=== PATIENT | male | born 1975 | race Caucasian/White ===

== ENCOUNTER 2021-03-27 20:22 | Emergency (ER) | payer OTHER ==
[2021-03-27 20:45] VITALS: O2SAT 98
[2021-03-27] MEDS ORDERED: Sodium Chloride 0.9% 1000 ML 1,000 ML IV STA (20:54)
[2021-03-27] MEDS ORDERED: TORAdol 30 mg Injection IV ONE (20:54)
[2021-03-27 21:25] LABS: Absolute Neutrophil Ct (ANC) 6.03 (1.4-6.9); BASOPHIL % 0.3 % (0.0-0.4); Basophil (Absolute #) 0.03 (0-0.4); Eosinophil (Absolute #) 0.11 (0-0.5); Hematocrit 40.9 % (42-50); Hemoglobin 13.5 gm/dl (12.5-18.0); Lymphocytes % 31.9 % (24.0-44.0); Mean Cell Volume 87.6 fl (78-100); Mean Corpuscular Hemoglobin 28.9 pg (26-32); Mean Platelet Volume 10.2 fl (7.5-11.0); Monocytes % 10.3 % (0.0-12.0); Neutrophil % 56.5 % (36.0-66.0); Platelet Count 261 K/mm3 (150-450); Red Blood Count 4.67 M/mm3 (4.1-5.6); Red Cell Distribution Width 12.5 % (11.5-14.0); White Blood Count 10.7 K/mm3 (4.0-10.5)
[2021-03-27 21:30] LABS: Amourphous Crystal FEW /HPF (NEGATIVE); Appearance SLIGHTLY CLOUDY (CLEAR); Bilirubin NEGATIVE (NEGATIVE); Blood SMALL Ery/ul (0-5); Glucose NEGATIVE (NEGATIVE); Ketones NEGATIVE (NEGATIVE); Leukocyte Esterase SMALL (NEGATIVE); Mucus SLIGHT /HPF (NEGATIVE); Nitrite NEGATIVE (NEGATIVE); Protein,Urine Dip 30 (Negative); Urobilinogen 2 mg/dL (0-1)
[2021-03-27 21:33] LABS: Bacteria RARE /HPF (NEGATIVE)
[2021-03-27 21:45] LABS: ALBUMIN 4.2 g/dL (3.5-5.0); ALKALINE PHOSPHATASE 71 U/L (38-126); ANION GAP 11.8 MEQ/L (5-15); BLOOD UREA NITROGEN 14 mg/dL (9-20); CHLORIDE 103 mmol/L (98-107); Calcium 9.5 mg/dL (8.4-10.2); Carbon Dioxide 28 mmol/L (22-30); Creatinine 1 0.77 mg/dL (0.66-1.25); EST GLOMERULAR FILTRATION RATE > 60.0 ML/MIN; Glucose 110 mg/dL (74-106); LIPASE 154 U/L (23-300); Potassium 3.6 mmol/L (3.5-5.1); SGOT/AST 25 U/L (17-59); SGPT/ALT 41 U/L (0-50); SODIUM 139 mmol/L (137-145); Total Protein 7.1 g/dL (6.3-8.2)
[2021-03-27] MEDS ORDERED: TORAdol 30 mg Injection ONE (22:05)
[2021-03-27] MEDS ORDERED: Sodium Chloride 0.9% 1000 ML 1,000 ML ONE (22:05)
[2021-03-27] MEDS ORDERED: Cipro 500 MG PO STA (22:27)
--- NOTE | 2021-03-27 22:27 | ERPHSYRPT ---
- History of Present Illness Time Seen by Provider: 03/27/21 20:30 Source: patient Exam Limitations: no limitations Patient Subjective Stated Complaint: pt states "I have had stomach pain since Wednesday." Triage Nursing Assessment: pt ambulated into er; pt axo x4; c/o RLQ pain; pt states 8/10 pain; pt states that he has hx of constipation; pt states last bowel movement was 4-5 days ago; pt states that he was put on a soft diet by nurse in detention; pt states that was scheduled to have EGD done; pt states that he has had multiple test and scans all ending with negative results; abd is soft, round; abd is tender with palpation to RLQ; hyperactive bowel sounds in all quads; clear lung sound in all lobes posterior and anterior; vitals wnl Physician History: Patient is a 45-year-old male presents to our emergency department for evaluation of abdominal pain. Patient states he has been having abdominal pain for years. Patient states his abdominal pain became significantly worse over the past week. Pain described as an ache that is periumbilical and slightly towards right lower quadrant as well. He has a history of constipation. Last bowel movement was 4 to 5 days ago. No fever. No testicular pain or penile d ischarge. No trauma. Symptoms are mild to moderate in intensity. Patient declined pain medication. Patient appears to be comfortable. Patient voices no other complaints or concerns at this time. Timing/Duration: day(s) (7 days) Severity: moderate Modifying Factors: Improves With: nothing Associated Symptoms: denies symptoms, shortness of breath, diaphoresis, fever, loss of appetite, malaise, rash, syncope, seizure, weakness Allergies/Adverse Reactions: No Known Drug Allergies Allergy (Unverified 03/27/21 20:26) Hx Tetanus, Diphtheria Vaccination/Date Given: Yes Hx Influenza Vaccination/Date Given: No Hx Pneumococcal Vaccination/Date Given: No Travel Risk - International Travel Have you traveled outside of the country in past 3 weeks: No - Coronavirus Screening Are you exhibiting any of the following symptoms?: Yes Symptoms: Vomiting/Diarrhea Close contact with a COVID-19 positive Pt in past 14-21 Days: No - Vaccine Status Have you recieved a Covid-19 vaccination: No - Review of Systems Constitutional: No Symptoms, No Fever, No Chills Eyes: No Symptoms Ears, Nose, & Throat: No Symptoms Respiratory: No Symptoms, No Cough, No Dyspnea Cardiac: No Symptoms, No Chest Pain, No Edema, No Syncope Abdominal/Gastrointestinal: No Symptoms, No Abdominal Pain, No Nausea, No Vomiting, No Diarrhea Genitourinary Symptoms: No Symptoms, No Dysuria Musculoskeletal: No Symptoms, No Back Pain, No Neck Pain Skin: No Symptoms, No Rash Neurological: No Symptoms, No Dizziness, No Focal Weakness, No Sensory Changes Psychological: No Symptoms Endocrine: No Symptoms Hematologic/Lymphatic: No Symptoms Immunological/Allergic: No Symptoms All Other Systems: Reviewed and Negative - Past Medical History Pertinent Past Medical History: Yes GI Medical History: Hernia - Past Surgical History Past Surgical History: Yes Musculoskeletal: Orthopedic Surgery Other Surgical History: tu hands, rt ankle - Social History Smoking Status: Current some day smoker Exposure to second hand smoke: No Drug Use: marijuana Patient Lives Alone: No (detention) - Nursing Vital Signs Nursing Vital Signs: Initial Vital Signs Temperature 96.7 F 03/27/21 20:27 Pulse Rate 86 03/27/21 20:27 Respiratory Rate 18 03/27/21 20:27 Blood Pressure 135/82 03/27/21 20:27 O2 Sat by Pulse Oximetry 98 03/27/21 20:27 Pain Scale Pain Intensity 8 - Physical Exam General Appearance: no apparent distress, alert Eye Exam: PERRL/EOMI, eyes nml inspection Ears, Nose, Throat Exam: normal ENT inspection, TMs normal, pharynx normal, moist mucous membranes Neck Exam: normal inspection, non-tender, supple, full range of motion Respiratory Exam: normal breath sounds, lungs clear, No respiratory distress Cardiovascular Exam: regular rate/rhythm, normal heart sounds, normal peripheral pulses Gastrointestinal/Abdomen Exam: soft, normal bowel sounds, other (Mild periumbilical tenderness to palpation. Remainder of abdominal exam is unremarkable. Overlying soft tissue intact. No signs of trauma. No ecchymosis.), No tenderness, No mass Back Exam: normal inspection, normal range of motion, No CVA tenderness, No vertebral tenderness Extremity Exam: normal inspection, normal range of motion, pelvis stable Neurologic Exam: alert, oriented x 3, cooperative, normal mood/affect, nml cerebellar function, nml station & gait, sensation nml, No motor deficits Skin Exam: normal color, warm, dry, No rash Lymphatic Exam: No adenopathy SpO2 Interpretation: normal SpO2: 98 O2 Delivery: Room Air - Course Nursing assessment & vital signs reviewed: Yes EKG Interpreted by Me: RATE (68), Sinus Rhythm, NORMAL AXIS, NORMAL INTERVALS - CT Exams Abdomen/Pelvis CT Interpretation: Tele-radiologist Report (No comparisons, normal appendix, 20 cm hepatomegaly, 1 cm right renal cyst, moderate diffuse fecal stasis.) Ordered Tests: Active Orders 24 hr Category Date Time Status EKG-ER Only STAT Care 03/27/21 20:54 Active IV Insertion STAT Care 03/27/21 20:54 Active ABDOMEN AND PELVIS W CONTRAST [CT] Stat Exams 03/27/21 20:54 Taken CBC W DIFF Stat Lab 03/27/21 21:15 Completed CMP Stat Lab 03/27/21 21:15 Completed CULTURE,URINE Stat Lab 03/27/21 21:15 Received LIPASE Stat Lab 03/27/21 21:15 Completed TROPONIN Q3H Lab 03/27/21 21:15 Completed TROPONIN Q3H Lab 03/28/21 00:00 Ordered TROPONIN Q3H Lab 03/28/21 03:00 Ordered TROPONIN Q3H Lab 03/28/21 06:00 Ordered TROPONIN Q3H Lab 03/28/21 09:00 Ordered UA W/RFX UR CULTURE Stat Lab 03/27/21 21:15 Completed Medication Summary Discontinued Medications Generic Name Dose Route Start Last Admin Trade Name Freq PRN Reason Stop Dose Admin Ciprofloxacin 500 mg 03/27/21 22:27 03/27/21 22:31 Cipro 500 Mg PO 03/27/21 22:28 500 mg ONCE STA Administration Ciprofloxacin Confirm 03/27/21 22:30 Cipro 500 Mg Administered 03/27/21 22:31 Dose 500 mg .ROUTE .STK-MED ONE Sodium Chloride 1,000 mls @ 999 mls/hr 03/27/21 20:54 03/27/21 22:08 Sodium Chloride 0.9% 1000 Ml IV 03/27/21 21:54 999 mls/hr .Q1H1M STA Administration Sodium Chloride Confirm 03/27/21 22:05 Sodium Chloride 0.9% 1000 Ml Administered 03/27/21 22:06 Dose 1,000 mls @ ud .ROUTE .STK-MED ONE Ketorolac Tromethamine 30 mg 03/27/21 20:54 03/27/21 22:06 Toradol 30 Mg Injection IV 03/27/21 20:55 30 mg STAT ONE Administration Ketorolac Tromethamine Confirm 03/27/21 22:05 Toradol 30 Mg Injection Administered 03/27/21 22:06 Dose 30 mg .ROUTE .STK-MED ONE Lab/Rad Data: Laboratory Result Diagrams 03/27/21 21:15 03/27/21 21:15 Laboratory Results 03/27/21 03/27/21 03/27/21 Range/Units 21:15 21:15 21:15 WBC 10.7 H (4.0-10.5) K/mm3 RBC 4.67 (4.1-5.6) M/mm3 Hgb 13.5 (12.5-18.0) gm/dl Hct 40.9 L (42-50) % MCV 87.6 (78-100) fl MCH 28.9 (26-32) pg MCHC 33.0 (32-36) g/dl RDW 12.5 (11.5-14.0) % Plt Count 261 (150-450) K/mm3 MPV 10.2 (7.5-11.0) fl Gran % 56.5 (36.0-66.0) % Eos # (Auto) 0.11 (0-0.5) Absolute Lymphs (auto) 3.40 (1.0-4.6) Absolute Monos (auto) 1.10 (0.0-1.3) Lymphocytes % 31.9 (24.0-44.0) % Monocytes % 10.3 (0.0-12.0) % Eosinophils % 1.0 (0.00-5.0) % Basophils % 0.3 (0.0-0.4) % Absolute Granulocytes 6.03 (1.4-6.9) Basophils # 0.03 (0-0.4) Sodium 139 (137-145) mmol/L Potassium 3.6 (3.5-5.1) mmol/L Chloride 103 (98-107) mmol/L Carbon Dioxide 28 (22-30) mmol/L Anion Gap 11.8 (5-15) MEQ/L BUN 14 (9-20) mg/dL Creatinine 0.77 (0.66-1.25) mg/dL Estimated GFR > 60.0 ML/MIN Glucose 110 H (74-106) mg/dL Calcium 9.5 (8.4-10.2) mg/dL Total Bilirubin 0.40 (0.2-1.3) mg/dL AST 25 (17-59) U/L ALT 41 (0-50) U/L Alkaline Phosphatase 71 (38-126) U/L Troponin I < 0.012 (0.000-0.034) ng/mL Serum Total Protein 7.1 (6.3-8.2) g/dL Albumin 4.2 (3.5-5.0) g/dL Lipase 154 (23-300) U/L Urine Color (YELLOW) Urine Appearance (CLEAR) Urine pH (5-6) Ur Specific [place] (1.005-1.025) Urine Protein (Negative) Urine Ketones (NEGATIVE) Urine Blood (0-5) Monty/ul Urine Nitrite (NEGATIVE) Urine Bilirubin (NEGATIVE) Urine Urobilinogen (0-1) mg/dL Ur Leukocyte Esterase (NEGATIVE) Urine WBC (Auto) (0-5) /HPF Urine RBC (Auto) (0-2) /HPF U Epithel Cells (Auto) (FEW) /HPF Urine Bacteria (Auto) (NEGATIVE) /HPF Amorphous Crystals (NEGATIVE) /HPF Urine Mucus (Auto) (NEGATIVE) /HPF Urine Culture Reflexed (NO) Urine Glucose (NEGATIVE) mg/dL 03/27/21 Range/Units 21:15 WBC (4.0-10.5) K/mm3 RBC (4.1-5.6) M/mm3 Hgb (12.5-18.0) gm/dl Hct (42-50) % MCV (78-100) fl MCH (26-32) pg MCHC (32-36) g/dl RDW (11.5-14.0) % Plt Count (150-450) K/mm3 MPV (7.5-11.0) fl Gran % (36.0-66.0) % Eos # (Auto) (0-0.5) Absolute Lymphs (auto) (1.0-4.6) Absolute Monos (auto) (0.0-1.3) Lymphocytes % (24.0-44.0) % Monocytes % (0.0-12.0) % Eosinophils % (0.00-5.0) % Basophils % (0.0-0.4) % Absolute Granulocytes (1.4-6.9) Basophils # (0-0.4) Sodium (137-145) mmol/L Potassium (3.5-5.1) mmol/L Chloride (98-107) mmol/L Carbon Dioxide (22-30) mmol/L Anion Gap (5-15) MEQ/L BUN (9-20) mg/dL Creatinine (0.66-1.25) mg/dL Estimated GFR ML/MIN Glucose (74-106) mg/dL Calcium (8.4-10.2) mg/dL Total Bilirubin (0.2-1.3) mg/dL AST (17-59) U/L ALT (0-50) U/L Alkaline Phosphatase (38-126) U/L Troponin I (0.000-0.034) ng/mL Serum Total Protein (6.3-8.2) g/dL Albumin (3.5-5.0) g/dL Lipase (23-300) U/L Urine Color YELLOW (YELLOW) Urine Appearance SLIGHTLY CLOUDY (CLEAR) Urine pH 6.0 (5-6) Ur Specific [place] 1.020 (1.005-1.025) Urine Protein 30 (Negative) Urine Ketones NEGATIVE (NEGATIVE) Urine Blood SMALL (0-5) Monty/ul Urine Nitrite NEGATIVE (NEGATIVE) Urine Bilirubin NEGATIVE (NEGATIVE) Urine Urobilinogen 2 (0-1) mg/dL Ur Leukocyte Esterase SMALL (NEGATIVE) Urine WBC (Auto) 16-25 (0-5) /HPF Urine RBC (Auto) 3-5 (0-2) /HPF U Epithel Cells (Auto) NONE (FEW) /HPF Urine Bacteria (Auto) RARE (NEGATIVE) /HPF Amorphous Crystals FEW (NEGATIVE) /HPF Urine Mucus (Auto) SLIGHT (NEGATIVE) /HPF Urine Culture Reflexed YES (NO) Urine Glucose NEGATIVE (NEGATIVE) mg/dL - Progress Progress: improved Progress Note: Patient is a 45-year-old male detention inmate presents with complaints of chronic abdominal pain. Pain worse over the past week. CT abdomen pelvis essentially negative for acute intra-abdominal pathology. Constipation observed. UA significant for urinary tract infection. Patient received a dose of Cipro in our ED. A prescription for the same was provided to patient. No indication for further work-up at this time. Patient voices no other complaints or concerns. 03/27/21 22:50 Counseled pt/family regarding: lab results, diagnosis, need for follow-up, rad results - Departure Departure Disposition: Home Clinical Impression: UTI (urinary tract infection), Hepatomegaly, Renal cyst, right, Constipation Condition: Stable Critical Care Time: No Additional Instructions: Discharge/Care Plan FARRUKH SPENCER was seen on 03/27/21 in the Emergency Room. The patient was counseled regarding Diagnosis,Lab results, Imaging studies, need for follow up and when to return to the Emergency Room. Prescriptions given: Discharge Note I have spoken with the patient and/or caregivers. I have explained the patient's condition, diagnosis and treatment plan based on the information available to me at this time. I have answered the patient's and/or caregiver's questions and addressed any concerns. The patient and/or caregivers have as good understanding of the patient's diagnosis, condition and treatment plan as can be expected at this point. The vital signs have been stable. The patient's condition is stable and appropriate for discharge from the emergency department. The patient will pursue further outpatient evaluation with the primary care physician or other designated or consulting physician as outlined in the discharge instructions. The patient and/or caregivers are agreeable to this plan of care and follow-up instructions have been explained in detail. The patient and/or caregivers have received these instruction. The patient/and or caregivers are aware that any significant change in condition or worsening of symptoms should prompt an immediate return to this or the closest emergency department or call 911. Prescriptions: Ciprofloxacin [Cipro 500 MG] 500 mg PO BID 10 Days #20 tablet
[2021-03-27] MEDS ORDERED: Cipro 500 MG ONE (22:30)
[2021-03-27 23:08] VITALS: BP 142/78; PULSE 74
--- NOTE | 2021-03-31 09:05 | XRAY ---
Indication: Abdomen pain. Multiple contiguous axial images obtained through the abdomen and pelvis using 80 cc Isovue 370 contrast. Comparison: None Lung bases are clear. Heart is not enlarged. Noncontrasted stomach and bowel loops appear nonobstructed. Normal air-filled appendix. There is moderate diffuse scattered colonic fecal debris throughout. Liver is enlarged measuring 20 cm. Gallbladder contracted without gallstones or biliary distention. No free fluid/air. Right kidney demonstrates a few cortical cysts, largest 1 cm. Remaining liver, gallbladder, pancreas, spleen, adrenal glands, kidneys, ureters, bladder, and aorta appear unremarkable. No pathologic retroperitoneal lymphadenopathy. Osseous structures intact with minimal degenerative changes throughout the spine. No ventral or inguinal hernias. Impression: 1. Diffuse fecal stasis, hepatomegaly, and right renal cysts. 2. Remaining CT abdomen/pelvis with contrast exam is negative.
== END 2021-03-27 23:05 | disposition home or self-care (01) ==
LOC: EDBD → ED 20:22 → MERGE 20:22 → EEVIPCON 20:22 → ED 23:05
DX: N39.0 Urinary tract infection, site not specified (principal); R16.0 Hepatomegaly, not elsewhere classified; Q89.8 Other specified congenital malformations
CPT/HCPCS: 36000; 36415; 74177; 80053; 81001; 83690; 84484; 85025; 87086; 93005; 96374; 99284; J1885; A9270-GY